=== PATIENT | female | born 1985 | race Caucasian/White ===

== ENCOUNTER 2016-11-19 14:48 | Emergency (ER) | payer OTHER ==
[~2016-11-19] VITALS: Ht 172.7 cm; Wt 54.4 kg
[2016-11-19] MEDS ORDERED: IBUPROFEN 600 MG TABLET PO ONE ×2 (15:37→16:00)
[2016-11-19 16:54] VITALS: BP 122/88
== END 2016-11-19 16:55 | disposition home or self-care (01) ==
LOC: ER 14:50
DX: S16.1XXA Strain of muscle, fascia and tendon at neck level, initial encounter (principal); S00.83XA Contusion of other part of head, initial encounter; S50.11XA Contusion of right forearm, initial encounter; V43.52XA Car driver injured in collision with other type car in traffic accident, initial encounter; Y93.89 Activity, other specified; Y92.413 State road as the place of occurrence of the external cause; Y99.8 Other external cause status
CPT/HCPCS: 73090-TC